=== PATIENT | female | born 1975 | race Hispanic/Latino ===

== ENCOUNTER 2022-06-16 11:01 | Emergency (ER) | payer OTHER, SELFPAY ==
[2022-06-16] MEDS ORDERED: Acetaminophen 500 MG TAB ONE (11:39)
== END 2022-06-16 13:07 | disposition home or self-care (01) ==
LOC: ERS 11:01
DX: M25.512 Pain in left shoulder (principal); E11.9 Type 2 diabetes mellitus without complications; V49.9XXA Car occupant (driver) (passenger) injured in unspecified traffic accident, initial encounter; Z79.84 Long term (current) use of oral hypoglycemic drugs